=== PATIENT | female | born 1940 | race Caucasian/White ===

== ENCOUNTER 2016-09-18 16:36 | Observation (INO) | payer MEDICAID, MEDICARE ==
[~2016-09-18] VITALS: Ht 152.4 cm; Wt 78.0 kg
[~2016-09-18 16:36] MED LIST: ASPI81CH43 PO; ATOR1TAB PO; CARV6.2551 PO; CLOP75TA41 PO; FAM20T PO; GABA-494 PO; ISOS30TA4 PO; LEVAMIR; LOSA100T27 PO; NIFE20CA PO
[2016-09-18 18:12] LABS: Basophils # (auto) 0 uL; Basophils % (auto) 0.1 % (0.0-2.0); DEFINITIVE VIEW TRANSMISSION; Eosinophils # (auto) 0.2 uL; Eosinophils % (auto) 1.7 % (0.0-7.0); Hematocrit 38.1 % (36.0-46.0); Hemoglobin 12.5 g/dL (12.2-16.2); Lymphocytes # (auto) 1.3 uL; Mean Corpuscular Hemoglobin 28.3 pg (28.0-32.0); Mean Corpuscular Hgb Conc. 32.8 g/dL (32.0-36.0); Mean Corpuscular Volume 86.2 fL (80.0-100.0); Mean Platelet Volume 9.5 fL (7.4-10.4); Monocytes # (auto) 1.8 uL; Monocytes % (auto) 15.2 % (0.0-12.0); Neutrophils # (auto) 8.4 uL; Platelet Count (auto) 269 10^3/uL (140-450); Red Cell Distribution Width 17.8 % (11.6-16.0); White Blood Cell 11.7 10^3/uL (4.4-10.8)
[2016-09-18 18:20] LABS: Albumin 2.7 g/dL (3.4-5.0); Anion Gap 11 (5-15); Aspartate Aminotransferase 14 U/L (15-37); BUN/Creatinine Ratio 23.4; Blood Urea Nitrogen 36 mg/dL (7-18); Calcium 8.7 mg/dL (8.5-10.1); Carbon Dioxide 25 mmol/L (21-32); Chloride 99 mmol/L (98-107); GFR African American 42 mL/min; GFR Non-African American 35 mL/min; Glucose 233 mg/dL (74-106); Magnesium 1.4 mg/dL (1.6-2.6); Sodium 135 mmol/L (136-145)
[2016-09-18 18:25] LABS: Alkaline Phosphatase 117 U/L (45-117); Bilirubin, Total 0.5 mg/dL (0.2-1.0); Total Protein 7.7 g/dL (6.4-8.2)
[2016-09-18 18:31] LABS: Potassium 5.6 mmol/L (3.5-5.1)
[2016-09-18] MEDS ORDERED: SODIUM CHLORIDE 0.9% 1,000 ML IVB ONE (20:29)
[2016-09-18] MEDS ORDERED: ONDANSETRON HCL 4 MG/2 ML VIAL IV ONE (20:30)
[2016-09-18 21:07] LABS: INR 1.09 (0.9-1.15); Partial Thromboplastin Time 28.9 sec (22.64-33.71); Prothrombin Time 11.9 sec (9.37-12.3)
[2016-09-18] MEDS ORDERED: SODIUM POLYSTYRENE SULF 15GM/60ML SUSP PO ONE ×2 (21:45)
[2016-09-18 22:11] LABS: Urine Bilirubin Negative (Negative); Urine Blood Negative /uL (Negative); Urine Color Yellow (Yellow); Urine Glucose Normal (Normal); Urine Ketone Negative (Negative); Urine Nitrite Negative (Negative); Urine RBC <1 /hpf (0 - 4); Urine Squamous Epithelial Cell FEW /hpf (<5); Urine Urobilinogen Normal (Negative)
[2016-09-19 00:36] VITALS: BP 162/83
== END 2016-09-19 00:30 | disposition left against medical advice (07) | DRG 251 ==
LOC: ER 16:43 → OVERFLOW 20:31 → ER 09-19 00:30
PROVIDERS: ADMIT Family Medicine; ATTEND Family Medicine
DX: R10.9 Unspecified abdominal pain (principal); E11.22 Type 2 diabetes mellitus with diabetic chronic kidney disease; E87.5 Hyperkalemia; E83.42 Hypomagnesemia; I12.9 Hypertensive chronic kidney disease with stage 1 through stage 4 chronic kidney disease, or unspecified chronic kidney disease; N18.3 Chronic kidney disease, stage 3 (moderate); E78.5 Hyperlipidemia, unspecified; F32.9 Major depressive disorder, single episode, unspecified; Z82.49 Family history of ischemic heart disease and other diseases of the circulatory system; Z83.3 Family history of diabetes mellitus; Z95.1 Presence of aortocoronary bypass graft
CPT/HCPCS: 36415; 71010; 74176; 80053; 81001; 82962; 83735; 84132; 84484; 85025; 85610; 85730; 96361; 96374; 99285; G0378; J2405; J7030; 93005

== ENCOUNTER → 2016-10-03 | Outpatient (CLI) | payer MEDICAID, MEDICARE ==
[2016-10-03 12:14] LABS: Basophils # (auto) 0 uL; CONDITION Y; DEFINITIVE SEE PRINTOUT; Eosinophils # (auto) 0.2 uL; Eosinophils % (auto) 1.6 % (0.0-7.0); Hematocrit 38.8 % (36.0-46.0); Lymphocytes # (auto) 1.1 uL; Lymphocytes % (auto) 11.2 % (10.0-50.0); Mean Corpuscular Hgb Conc. 33.5 g/dL (32.0-36.0); Mean Corpuscular Volume 83.6 fL (80.0-100.0); Monocytes # (auto) 1.7 uL; Monocytes % (auto) 17.1 % (0.0-12.0); Neutrophils # (auto) 7.1 uL; Neutrophils % (auto) 70.1 % (37.0-80.0); Platelet Count (auto) 244 10^3/uL (140-450); Red Cell Distribution Width 17.7 % (11.6-16.0); White Blood Cell 10.2 10^3/uL (4.4-10.8)
[2016-10-03 12:28] LABS: Albumin 2.6 g/dL (3.4-5.0); BUN/Creatinine Ratio 31.7; Bilirubin, Total 0.7 mg/dL (0.2-1.0); Calcium 9.3 mg/dL (8.5-10.1); Potassium 4.6 mmol/L (3.5-5.1)
== END | disposition home or self-care (01) ==
LOC: LAB 11:18
PROVIDERS: ATTEND Internal Medicine
DX: C83.33 Diffuse large B-cell lymphoma, intra-abdominal lymph nodes (principal)
CPT/HCPCS: 36415; 80053; 80074; 83615; 85025

== ENCOUNTER → 2016-10-08 | Outpatient (CLI) | payer MEDICAID, MEDICARE | END | disposition home or self-care (01) | LOC: LAB 16:10 | PROVIDERS: ATTEND Internal Medicine Gastroenterology | DX: A04.8 Other specified bacterial intestinal infections (principal) ==

== ENCOUNTER → 2016-10-08 | Outpatient (CLI) | payer MEDICARE, MEDICAID | END | disposition home or self-care (01) | LOC: LAB 15:00 | PROVIDERS: ATTEND Internal Medicine | DX: C83.30 Diffuse large B-cell lymphoma, unspecified site (principal) ==